=== PATIENT | female | born 1995 | race Two or more races ===

== ENCOUNTER 2024-05-17 22:06 | Emergency (ER) | payer MEDICAID, OTHER ==
[~2024-05-17] VITALS: Ht 162.6 cm; Wt 58.2 kg
[2024-05-17 23:47] VITALS: BP 109/54; PULSE 92; RESP 19; TEMP 98.2; O2SAT 99
[2024-05-18] MEDS: HYDROcodone-ACET 5/325MG TAB PO ONE (00:40)
[2024-05-18] MEDS: KETOROLAC TROMETH 60MG/2ML VIAL IM ONE (00:40)
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
[2024-05-18] MEDS ORDERED: IBUP-1456 PO (01:13)
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
== END 2024-05-18 01:35 | disposition home or self-care (01) ==
LOC: ER 22:06
DX: R51.9 Headache, unspecified (principal); S00.33XA Contusion of nose, initial encounter; S80.01XA Contusion of right knee, initial encounter; S80.02XA Contusion of left knee, initial encounter; J32.0 Chronic maxillary sinusitis; Y04.0XXA Assault by unarmed brawl or fight, initial encounter; Y93.89 Activity, other specified; Y92.89 Other specified places as the place of occurrence of the external cause; Y99.8 Other external cause status
CPT/HCPCS: 70486; 73700; 96372; 99285; J1885